=== PATIENT | female | born 1950 | race Caucasian/White ===

== ENCOUNTER 2022-01-06 10:24 | Emergency (ER) | payer MEDICARE, OTHER, SELFPAY ==
[2022-01-06 10:28] VITALS: BP 136/104; PULSE 87; RESP 14; TEMP 36.8; O2SAT 96; BMI 28.3
[2022-01-06 10:49] LABS: Appearance Urine UA TURBID; Bilirubin Urine UA NEGATIVE (NEGATIVE); Color Urine UA RED; Glucose Urine UA NEGATIVE (Negative); Ketones Urine UA 2+ (NEGATIVE); Leukocyte Esterase Urine UA 1+ (NEGATIVE); Nitrite Urine UA POSITIVE (Negative); Occult Blood Urine UA 3+ (Negative); Protein Urine UA 3+ (Negative); Urobilinogen Urine UA 0.2 E.U./dL (0.2)
[2022-01-06 10:51] LABS: Bacteria Urine Many (>30); RBC Urine >100/HPF (0-5/HPF); WBC Urine 10-30/HPF (0-5/HPF)
--- NOTE | 2022-01-06 11:23 | ED.GENADULT ---
HPI - General Adult General Chief complaint: Urogenital-Female Stated complaint: burning pain and blood in urine, tx for UTI Time Seen by Provider: 01/06/22 11:01 Source: patient Mode of arrival: Ambulatory History of Present Illness HPI narrative: Patient is a 71-year-old female. She was recently diagnosed with the urinary tract infection by her primary doctor. Was placed on Cipro. Has had less than 1 day of this medication. She states that her primary doctor was concerned about a potential kidney stone because she was having blood in her urine. She has not had any fevers. Some nausea but has been able to take her antibiotics. She did not take her medication this morning. She felt that since the onset of her symptoms she is having more burning and discomfort in her suprapubic region. No diarrhea. She came to the emergency department because her primary doctor requested that she have further evaluation. Related Data Previous Rx's Medication Instructions Recorded ondansetron 4 mg disintegrating 4 mg SUBLINGUAL Q6HP PRN #20 odt 06/15/17 tablet (Zofran ODT) phenazopyridine 100 mg tablet 100 mg PO TID PRN #6 tab 01/06/22 (Pyridium) Allergies Allergy/AdvReac Type Severity Reaction Status Date / Time No Known Drug Allergies Allergy Verified 01/06/22 10:34 Review of Systems Constitutional Constitutional: Reports as per HPI and Reports system reviewed and no additional complaints, except as documented Cardiovascular Cardiovascular: Reports system reviewed and no additional complaints, except as documented Respiratory Respiratory: Reports system reviewed and no additional complaints, except as documented Gastrointestinal Gastrointestinal: Reports as per HPI and Reports system reviewed and no additional complaints, except as documented Genitourinary Genitourinary: Reports system reviewed and no additional complaints, except as documented and Reports as per HPI Musculoskeletal Musculoskeletal: Denies back pain Integumentary/Breasts Skin/Breast: Reports system reviewed and no additional complaints, except as documented Neurologic Neurologic: Reports system reviewed and no additional complaints, except as documented Hematologic/Lymphatic On Anticoagulants: No Patient History Social History Smoking Status: Unknown if ever smoked Smoking Status: Unknown if ever smoked alcohol intake frequency: holidays/special occasions only Substance Use Type: does not use Exam Initial Vital Signs Initial Vital Signs: Vital Signs Temperature 98.3 F 01/06/22 10:28 Pulse Rate 87 01/06/22 10:28 Respiratory Rate 14 01/06/22 10:28 Blood Pressure 136/104 H 01/06/22 10:28 Pulse Oximetry 96 01/06/22 10:28 HENMT Head: normal to inspection Resp Effort & Inspection: normal respiratory effort Cardio Rate: regular rate GI Inspection: normal to inspection and non-distended Skin General: no rashes or lesions noted Neuro General: patient alert, patient awake, patient oriented x3 and moves all extremities Extrem General: normal to inspection and capillary refill normal Psych Appearance: grossly normal and well kempt Scores GCS [place] coma scale eye opening: Spontaneous [place] coma scale verbal response: Orientated [place] coma scale motor response: Obey commands [place] coma scale total score: 15 Course Orders Ordered: Discontinued Medications Phenazopyridine HCl (Phenazopyridine 100 Mg Tablet) 100 mg PO NOW ONE Stop: 01/06/22 11:24 Last Admin: 01/06/22 11:31 Dose: 100 mg Documented by: RADHA Vital Signs Vital signs: Vital Signs - 8 hr 01/06/22 10:28 Temperature 98.3 F Pulse Rate 87 Respiratory Rate 14 Blood Pressure 136/104 H Pulse Oximetry 96 Medical Decision Making Lab Data Labs: Lab Results 01/06/22 Range/Units 10:38 Urine Color Red Urine Appearance Turbid Urine pH 6.0 (4.5-8.0) Ur Specific Earle 1.020 (1.000-1.035) Urine Protein 3+ H (Negative) Urine Glucose (UA) Negative (Negative) g/dL Urine Ketones 2+ H (NEGATIVE) Urine Occult Blood 3+ H (Negative) Urine Nitrate Positive H (Negative) Urine Bilirubin Negative (NEGATIVE) Urine Urobilinogen 0.2 (0.2) E.U./dL Ur Leukocyte Esterase 1+ H (NEGATIVE) Urine RBC >100/hpf H (0-5/HPF) Urine WBC 10-30/hpf H (0-5/HPF) Urine Bacteria Many (>30) H (None) Ur Culture Indicated? Culture not indicate MDM Narrative Medical decision making narrative: Patient is nontoxic appearing. She has a fairly obvious urinary tract infection on the urinalysis. I do have low suspicion for a kidney stone. Her discomfort is not consistent with this. I also have low concern for pyelonephritis. The blood and urine most likely from the infection/hemorrhagic cystitis. She has only been on the antibiotics for 1 day. A urine culture was obtained today however I do not feel the need to switch antibiotics as I feel this would complicate the picture. Will have her continue to take the Cipro as directed. She was given return precautions and follow-up instructions. She expressed understanding agreement. Discharge Plan Departure Patient Disposition: Home Clinical Impression: Urinary tract infection Instructions: DI for Urinary Tract Infection (UTI) Activity Restrictions/Additional Instructions: Like we discussed I do recommend that you continue to take the antibiotics as directed. If your symptoms worsen or you develop fevers or inability to take the antibiotics and you do need to be re-evaluated. A prescription for medicine called Pyridium was transmitted to the pharmacy of your choice. Please take it as needed as directed. Return to the emergency department for any new or worsening symptoms. Prescriptions: New phenazopyridine [Pyridium] 100 mg tablet 100 mg PO TID PRN (Reason: pain) Qty: 6 0RF No Action ondansetron [Zofran ODT] 4 MG tablet,disintegrating 4 mg Sublingual Q6HP PRNQty: 20 0RF Referrals: Alvarez Pettit MD [Primary Care Provider] -
[2022-01-06] MEDS: PHENAZOPYRIDINE 100 MG TABLET PO (11:31)
== END 2022-01-06 11:34 | disposition home or self-care (01) ==
PROVIDERS: Emergency Provider Emergency Medicine; PCP Internal Medicine
DX: N39.0 Urinary tract infection, site not specified (principal)
CPT/HCPCS: 81001; 87077; 87086; 87186; 99283

== ENCOUNTER 2022-10-08 13:46 | Emergency (ER) | payer MEDICARE, OTHER, SELFPAY ==
[2022-10-08] VITALS (10 sets, daily range): BP systolic 147–162; BP diastolic 64–74; PULSE 81–88; RESP 16–32; TEMP 37.7; O2SAT 92–95
--- NOTE | 2022-10-08 14:06 | ED.GENADULT ---
HPI - General Adult General Chief complaint: Fever Stated complaint: bad cough, fever Time Seen by Provider: 10/08/22 14:02 Source: patient Mode of arrival: Ambulatory Limitations: no limitations History of Present Illness HPI narrative: Patient is a 72-year-old female who has had approximately 5 days of a cough and a fever. She has seen her primary doctor. Has a prescription for Robitussin with codeine and also Tessalon Perles. She also states that she is been taking Tylenol and ibuprofen which helps her fevers. Last evening she had a difficult time sleeping because of the cough. Overall she does feel okay. It is a productive cough. No chest pain. No rashes. She states she has coughed so much she is vomited. She contacted her primary doctor who told her to come to the emergency department for evaluation. Related Data Allergies Allergy/AdvReac Type Severity Reaction Status Date / Time No Known Drug Allergies Allergy Verified 10/08/22 14:38 Review of Systems Constitutional Constitutional: Reports system reviewed and no additional complaints, except as documented ENT Ears, Nose, Mouth, and Throat: Reports system reviewed and no additional complaints, except as documented Cardiovascular Cardiovascular: Reports system reviewed and no additional complaints, except as documented Respiratory Respiratory: Reports system reviewed and no additional complaints, except as documented Gastrointestinal Gastrointestinal: Reports system reviewed and no additional complaints, except as documented Integumentary/Breasts Skin/Breast: Reports system reviewed and no additional complaints, except as documented Neurologic Neurologic: Reports system reviewed and no additional complaints, except as documented Patient History Social History Smoking Status: Never smoker Smoking Status: Never smoker alcohol intake frequency: holidays/special occasions only Substance Use Type: does not use Exam Initial Vital Signs Initial Vital Signs: Vital Signs Temperature 99.9 F H 10/08/22 13:50 Pulse Rate 85 10/08/22 13:50 Respiratory Rate 16 10/08/22 13:50 Blood Pressure 162/74 H 10/08/22 13:50 Pulse Oximetry 93 10/08/22 13:50 Oxygen Delivery Method 10/08/22 13:50 Const General: cooperative, comfortable and No ill appearing HENMT Head: normal to inspection and normocephalic Resp Effort & Inspection: normal respiratory effort Auscultation: crackles Cardio Rate: regular rate Skin General: no rashes or lesions noted Neuro General: patient alert, patient awake and moves all extremities Extrem General: capillary refill normal Course Orders Ordered: ED Orders 10/08/22 14:00 Complete Blood Count AUTO DIFF Stat Comprehensive Metabolic Panel Stat Lipase Stat NT-proBNP (BNP-Adult 18+) Stat Procalcitonin Stat Troponin & CK Cardiac Panel Stat 10/08/22 14:07 XR chest 1V Stat Covid-19 + FLU A/B + RSV - PCR Stat 10/08/22 14:33 EKG-12 Lead Stat Vital Signs Vital signs: Vital Signs - 8 hr 10/08/22 13:50 10/08/22 13:53 10/08/22 13:54 Temperature 99.9 F H Pulse Rate 85 81 Respiratory Rate 16 32 H Blood Pressure 162/74 H 162/74 H Pulse Oximetry 93 94 Oxygen Delivery Method Room Air 10/08/22 13:54 Temperature Pulse Rate 86 Respiratory Rate 32 H Blood Pressure Pulse Oximetry 93 Oxygen Delivery Method Room Air Medical Decision Making Lab Data Lab results reviewed: Yes I reviewed the patient's lab results. Result diagrams: 10/08/22 14:00 10/08/22 14:00 Labs: Lab Results 10/08/22 10/08/22 10/08/22 Range/Units 14:00 14:00 14:07 WBC 8.5 (4.5-11.0) X10^3/uL RBC 4.30 (4.0-5.2) X10^6/uL Hgb 12.8 (12.0-16.0) g/dL Hct 36.9 (36-46) % MCV 85.8 (80-100) fL MCH 29.7 (26-34) PG MCHC 34.6 (30-36) % RDW 13.2 (11.6-14.8) % Plt Count 218 (150-400) X10^3/uL Neut % (Auto) 71.0 (50-75) % Lymph % (Auto) 13.1 L (25-40) % Sunflower % (Auto) 15.4 H (3-14) % Eos % (Auto) 0.1 L (2-4) % Baso % (Auto) 0.4 (0-2) % Neut # (Auto) 6000 (8007-5604) /uL Lymph # (Auto) 1100 (6823-7844) /uL Sunflower # (Auto) 1300 H (0-900) /uL Eos # (Auto) 0 (0-450) /uL Baso # (Auto) 0 (0-100) /uL Sodium 133 L (137-145) mmol/L Potassium 3.9 (3.4-5.1) mmol/L Chloride 98 (98-107) mmol/L Carbon Dioxide 25 (22-32) mmol/L BUN 13 (7-17) mg/dL Creatinine 0.74 (0.52-1.04) mg/dL Estimated GFR > 60 (>60) mL/min BUN/Creatinine Ratio 17.6 (6-22) Glucose 115 H (80-110) mg/dL Calcium 9.2 (8.4-10.2) mg/dL Total Bilirubin 0.4 (0.2-1.3) mg/dL AST 34 (14-36) IU/L ALT 26 (<35) IU/L Alkaline Phosphatase 82 (38-126) U/L Total Creatine Kinase 89 (30-135) U/L CK-MB (CK-2) TNP CK-MB (CK-2) Rel Index TNP Troponin I < 0.012 (0.01-0.034) ng/mL NT-Pro-B Natriuret Pep 512 H (<125) pg/mL Total Protein 7.0 (6.3-8.2) g/dL Albumin 4.0 (3.5-5.0) g/dL Globulin 3.0 (1.7-4.1) g/dL Albumin/Globulin Ratio 1.3 (1.0-2.8) Lipase 72 (23-300) U/L Procalcitonin 0.07 (<0.5) ng/mL SARS-CoV-2 (PCR) Negative (Negative) Influenza A (RT-PCR) Flu a positive H (NEGATIVE) Influenza B (RT-PCR) Flu b negative (NEGATIVE) RSV (PCR) Negative (Negative) Imaging Data Chest x-ray: Radiologist's Impression: [address] [address] XRay Report Signed Patient: Rika Romero MR#: [id number] : 1950 Acct:[id number] Age/Sex: 72 / F Date of Service: 10/08/22 Loc: ED Accession Number: [id number] ?? Procedure: XR chest 1V Ordering Provider: Karri Ambrosio D.O. PROCEDURE:? XR CHEST 1V ? INDICATIONS:? eval for PNA ? TECHNIQUE:? One view of the chest was acquired.? ? COMPARISON:? [facility], CR, XR CHEST 2 VIEWS, 09/05/2019, 16:40. ? FINDINGS:? ? Surgical changes and devices:? None.? ? Lungs and pleura:? On this semiupright portable chest examination, no large pneumothorax or large pleural effusions are seen.? No focal infiltrates are seen.? ? Mediastinum:? Mediastinal contours appear normal.? Heart size is normal.? ? Bones and chest wall:? Age-appropriate bony degenerative changes are seen.? No suspicious bony lesions.? Overlying soft tissues appear unremarkable.? IMPRESSION:? Portable chest demonstrating no infiltrate. ? ? Dictated by: Ubaldo Gutierrez M.D. on 10/08/2022 at 13:56 ? ? Approved by: Ubaldo Gutierrez M.D. on 10/08/2022 at 13:56? ECG Data Attestation: I personally reviewed and interpreted this ECG as follows: Interpretation: Sinus rhythm Sinus arrhythmia Ventricular rate 81 Normal axis Normal QRS No ST T wave changes MDM Narrative Medical decision making narrative: Patient does have crackles specifically on the right side of her lung mohamud. Her chest x-ray shows no signs of pneumonia. She is influenza positive which does explain her presenting symptoms. No indication for Tamiflu. No indication for antibiotics. We did discuss use of Tylenol and ibuprofen and continued use of the antitussives. She was given return precautions. She expressed understanding and agreement. Discharge Plan Departure Patient Disposition: Home Clinical Impression: Influenza Instructions: DI for Influenza -- Adult Activity Restrictions/Additional Instructions: Be sure to increase your fluid intake. You can continue to use the cough medications that you have already been prescribed. You can continue to take Tylenol/ibuprofen for any fevers. Return to the emergency department for any new or worsening symptoms. Referrals: Alvarez Pettit MD [Primary Care Provider] -
--- NOTE | 2022-10-08 14:07 | DI.RAD.S_ITS ---
PROCEDURE: XR CHEST 1V INDICATIONS: eval for PNA TECHNIQUE: One view of the chest was acquired. COMPARISON: [facility], CR, XR CHEST 2 VIEWS, 09/05/2019, 16:40. FINDINGS: Surgical changes and devices: None. Lungs and pleura: On this semiupright portable chest examination, no large pneumothorax or large pleural effusions are seen. No focal infiltrates are seen. Mediastinum: Mediastinal contours appear normal. Heart size is normal. Bones and chest wall: Age-appropriate bony degenerative changes are seen. No suspicious bony lesions. Overlying soft tissues appear unremarkable. IMPRESSION: Portable chest demonstrating no infiltrate. Dictated by: Ubaldo Gutierrez M.D. on 10/08/2022 at 13:56 Approved by: Ubaldo Gutierrez M.D. on 10/08/2022 at 13:56
[2022-10-08 14:25] LABS: Add Manual Diff / Slide Review NO; Basophils Absolute Auto 0 /uL (0-100); Basophils Percent Auto 0.4 % (0-2); Eosinophils Absolute Auto 0 /uL (0-450); Eosinophils Percent Auto 0.1 % (2-4); Hematocrit 36.9 % (36-46); Hemoglobin 12.8 g/dL (12.0-16.0); Lymphocytes Absolute Auto 1100 /uL (1100-4500); Lymphocytes Percent Auto 13.1 % (25-40); Mean Corpuscular HGB Conc 34.6 % (30-36); Mean Corpuscular Hemoglobin 29.7 PG (26-34); Mean Corpuscular Volume 85.8 fL (80-100); Monocytes Absolute Auto 1300 /uL (0-900); Monocytes Percent Auto 15.4 % (3-14); Neutrophils Absolute Auto 6000 /uL (1500-7000); Platelet Count 218 X10^3/uL (150-400); Red Cell Distribution Width 13.2 % (11.6-14.8); White Blood Cell Count 8.5 X10^3/uL (4.5-11.0)
[2022-10-08 14:29] LABS: Alanine Aminotransferase 26 IU/L (<35); Albumin Globulin Ratio 1.3 (1.0-2.8); Alkaline Phosphatase 82 U/L (38-126); Aspartate Aminotransferase 34 IU/L (14-36); BUN Creatinine Ratio 17.6 (6-22); Bilirubin Total 0.4 mg/dL (0.2-1.3); Blood Urea Nitrogen 13 mg/dL (7-17); Calcium 9.2 mg/dL (8.4-10.2); Carbon Dioxide 25 mmol/L (22-32); Chloride 98 mmol/L (98-107); Creatine Kinase 89 U/L (30-135); Estimated Glomerular Filt Rate > 60 mL/min (>60); Glucose 115 mg/dL (80-110); HEMOLYSIS < 15 (0-50); Lipase 72 U/L (23-300); Potassium 3.9 mmol/L (3.4-5.1); Sodium 133 mmol/L (137-145)
[2022-10-08 14:39] LABS: Influenza A - CEPHEID Flu A POSITIVE (NEGATIVE); Influenza B - CEPHEID Flu B NEGATIVE (NEGATIVE); Respiratory Syncytial Virus Negative (Negative)
[2022-10-08 14:40] LABS: COVID-19 CEPHEID 4-PLEX PCR Negative (Negative)
[2022-10-08 14:41] LABS: NT-proBNP (BNP-Adult 18+) 512 pg/mL (<125); Troponin I < 0.012 ng/mL (0.01-0.034)
[2022-10-08 14:46] LABS: Procalcitonin 0.07 ng/mL (<0.5)
== END 2022-10-08 15:25 | disposition home or self-care (01) ==
PROVIDERS: Emergency Provider Emergency Medicine; PCP Internal Medicine
DX: J10.1 Influenza due to other identified influenza virus with other respiratory manifestations (principal); R50.9 Fever, unspecified; R07.9 Chest pain, unspecified; Z20.822 Contact with and (suspected) exposure to COVID-19
CPT/HCPCS: 0241U; 36415; 71045; 80053; 82550; 83690; 83880; 84145; 84484; 85025; 93005; 99284